=== PATIENT | female | born 1945 | race Caucasian/White ===

== ENCOUNTER 2024-10-07 10:45 | Emergency (ER) | payer MEDICARE, SELFPAY ==
[2024-10-07 11:07] VITALS: BP 109/66
--- NOTE | 2024-10-07 14:21 | ED.MUSCINJ ---
HPI-Injury
General
Chief Complaint: Musculo-Skeletal Complaint
Source: patient
Exam Limitations: dementia
Time Seen by Provider: 10/07/24 14:13
History of Present Illness-Injury
Initial Injury comments:
79-year-old female with history of dementia brought in by EMS after an unwitnessed fall from [facility]. She is a limited historian but does note right shoulder and pelvic pain. She also notes lower back pain she is uncertain if she
hit her head. Papers from the halfway do not endorse any blood thinners. Patient is uncertain when she fell. No other complaints
Phy Exam
Physical Exam
Physical Exam:
General: Well-appearing female no acute respiratory distress
HEENT: Normocephalic atraumatic
Heart: Regular rate and rhythm
Lungs: Clear no wheeze
Abdomen is soft nontender nondistended no guarding or rebound
Musculoskeletal exam: Patient is tender about the right shoulder no deformities. She is also tender over the right lumbosacral junction and posterior pelvis. No deformities to the legs.
Neurologic exam: Alert and oriented to person only
Injury Course
Orders/Labs/Results
Orders:
Orders
10/07/24 14:20
CR Lumbar Spine 2 Or 3 Views Urgent
Comment:
Reason For Exam: fall
CR Pelvis - 1 Or 2 Views Urgent
Comment:
Reason For Exam: fall
CR Shoulder, Trauma - Right Urgent
Comment:
Reason For Exam: fall, pain
10/07/24 14:21
CT Head W/o Iv Contrast Urgent
Comment:
Reason For Exam: fall
MDM/Problems Addressed
Differential Diagnosis Includes:
Unwitnessed fall at nursing facility no blood thinners. CT of the head x-ray right shoulder lumbar spine and pelvis pending
*Critical Care Note
Total Time (30-74mins, 75-104mins- exclusive of procedures): Not Applicable
Update Note
Update Note:
CT head negative for acute finding. X-ray right shoulder lumbar spine and pelvis all negative for acute fractures. Patient reassured. Stable for discharge back to facility
ED Attending Note
-
Portions of this chart may have been created with voice recognition software.� Occasional wrong word or��sound alike� substitutions may have occurred due to the inherent limitations of voice recognition software.
Discharge Plan
Departure
Patient Disposition: Home (Routine Discharge)
Date of Disposition: 10/07/24
Time of Disposition: 16:28
Patient with high blood pressure during this ER visit?: No
Discharge Problem:
Fall
Instructions: Contusion (DC)
Referrals:
Flavia Foster, DO [Family Provider] -
Activity Restrictions/Additional Instructions:
You may take Tylenol if needed for pain. Ice to the sore spot. Return if worse otherwise.
Interventions
Interventions:
*Risk Screen - Suicide Last Done: 10/07/24 11:10
*General Assessment Last Done: 10/07/24 11:10
*Neglect/Abuse Screening Last Done: 10/07/24 11:10
*ED COVID-19 Vaccine History Last Done: 10/07/24 11:10
ED-Musculoskeletal Assessment Last Done: 10/07/24 14:44
Discharge Date and Time
Print Language: SIER[place] LEONEAN
[2024-10-07 15:30] VITALS: BP 136/63
== END 2024-10-07 18:00 | disposition home or self-care (01) ==
LOC: EMR 10:45
PROVIDERS: EMERGENCY PHYSICIAN Student in an Organized Health Care Education/Training Program; FAMILY PHYSICIAN Family Medicine
DX: R10.2 Pelvic and perineal pain (principal); M25.511 Pain in right shoulder; M54.50 Low back pain, unspecified; W19.XXXA Unspecified fall, initial encounter; F03.90 Unspecified dementia, unspecified severity, without behavioral disturbance, psychotic disturbance, mood disturbance, and anxiety
CPT/HCPCS: 99284; 70450; 72100; 72170; 73030

== ENCOUNTER 2024-10-22 04:31 | Emergency (ER) | payer MEDICARE, SELFPAY ==
[2024-10-22 04:36] VITALS: BP 141/63
[2024-10-22 04:53] VITALS: BMI 23.4
--- NOTE | 2024-10-22 04:56 | ED.GENMED ---
Addendum entered and electronically signed by Rey Segal MD 10/23/24 15:25:
Son aware of coccyx fracture. I will inform the facility.
Original Note:
History of Present Illness
General
Chief Complaint: Fall
Source: patient, ambulance crew and group home
Exam Limitations: none
Time Seen by Provider: 10/22/24 04:40
Nursing documentation reviewed up to this point in time: agreed with
History of Present Illness
History of Present Illness:
Pleasantly demented 79-year-old female presents to the emergency department after unwitnessed fall. Patient resides in a dementia unit. She has dementia. She is at baseline. Patient is complaining of diffuse neck pain and coccygeal pain. Medics
state that she has had coccygeal pain in the past. Patient arrived in a c-collar. History is limited due to patient's chronic condition.
Review of Systems
Review of Systems
Allergies reviewed?: Yes
Other source history: group home
All Other Systems: Not applicable
Musculoskeletal: Reports joint pain
Psychiatric: Reports anxiety
Phy Exam
General Physical Exam
General Presentation: well appearing and mild distress
General age: appears stated age
General Skin: warm
General Habitus: elderly
General Mental: anxious
General Hydration: appears well hydrated
ENT Exam
ENT Exam: EOMI, pharynx normal, neck supple and normocephalic
Eye Exam
Eye Exam: PERRL, cornea clear and conjunctiva normal
Cardiovascular Exam
Cardiovascular Exam: regular rate/rhythm, no edema, no murmur and normal peripheral pulses
Pulmonary Exam
Pulmonary Exam: lungs clear, no respiratory distress, no rales, no crackles, no rhonchi, no stridor, no wheezing and no cough
Gastrointestinal Exam
Gastrointestinal Exam: normal bowel sounds, non tender, soft, no organomegaly, no pulsatile mass and non distended
Neurological Exam
Neurological Exam: other (baseline)
Musculoskeletal Exam
Musculoskeletal Exam: full ROM and no edema
Skin Exam
Skin Exam: normal color, warm/dry, no rash and no petechia
Psychiatric Exam
Psychiatric Exam: labile
Course
Orders/Labs/Results
Orders:
Orders
10/22/24 04:49
CT Cervical Spine W/o Iv Contr Urgent
Comment:
Reason For Exam: fall with neck pain, dementia
CT Head W/o Iv Contrast Urgent
Comment:
Reason For Exam: fall
CT Pelvis W/o Iv Contrast Urgent
Comment:
Reason For Exam: pelvic pain after fall
10/22/24 04:58
Morphine Sulfate 4 mg IV NOW STA
Vital Signs
Initial and Last Documented VS:
Initial Vital Signs
Temp Pulse Resp BP Pulse Ox
98.1 F 76 17 141/63 96
10/22/24 04:36 10/22/24 04:36 10/22/24 04:36 10/22/24 04:36 10/22/24 04:36
Last Documented Vital Signs
Temp Pulse Resp BP Pulse Ox
98.1 F 82 12 149/70 96
10/22/24 04:36 10/22/24 05:00 10/22/24 05:00 10/22/24 05:00 10/22/24 04:45
*Critical Care Note
Total Time (30-74mins, 75-104mins- exclusive of procedures): Not Applicable
Update Note
Update Note:
CT pelvis without IV contrast
IMPRESSION:
Bilateral total hip arthroplasties. No definite acute fracture or dislocation. Alignment intact. Bone demineralization. Constipation.
CT pelvis without IV contrast
IMPRESSION:
Bilateral total hip arthroplasties. No definite acute fracture or dislocation. Alignment intact. Bone demineralization. Constipation.
ED Attending Note
-
Portions of this chart may have been created with voice recognition software.� Occasional wrong word or��sound alike� substitutions may have occurred due to the inherent limitations of voice recognition software.
Discharge Plan
Departure
Prescriptions:
No Action
divalproex [Depakote] 250 mg Tablet,Delayed Release (Dr/Ec)
250 mg PO BID
clonazepam [Klonopin] 0.5 mg Tablet
0.5 mg PO TID
quetiapine [Seroquel] 100 mg Tablet
100 mg PO HS
loratadine [Claritin] 10 mg Tablet
10 mg PO DAILY
ezetimibe [Zetia] 10 mg Tablet
10 mg PO HS
quetiapine [Seroquel] 50 mg Tablet
50 mg PO BID
cholecalciferol (vitamin D3) 25 mcg (1,000 unit) Tablet
25 mcg PO DAILY
Lorazepam Gel
0.5 mg topical Q3H PRN (Reason: anxiety)
Patient Comments:
apply to neck or wrist as needed for anxiety
Referrals:
UNKNOWN - PT DOES,NOT KNOW [Family Provider] -
Interventions
Interventions:
*General Assessment Last Done: 10/22/24 04:36
*Neglect/Abuse Screening Last Done: 10/22/24 04:36
*ED- Fall Risk Assessment Last Done: 10/22/24 04:36
*ED COVID-19 Vaccine History Last Done: 10/22/24 04:36
ED-Musculoskeletal Assessment Last Done: 10/22/24 04:40
ED- Neurological Assessment Last Done: 10/22/24 04:40
ED-Skin Assessment Last Done: 10/22/24 04:40
Discharge Date and Time
Print Language: BENINESE
[2024-10-22 05:00] VITALS: BP 149/70
[2024-10-22] MEDS: MORPHINE SULFATE 4 MG IV (05:09)
== END 2024-10-22 07:13 ==
LOC: EMR 04:31
PROVIDERS: EMERGENCY PHYSICIAN Student in an Organized Health Care Education/Training Program
DX: S09.90XA Unspecified injury of head, initial encounter (principal); W19.XXXA Unspecified fall, initial encounter; F03.90 Unspecified dementia, unspecified severity, without behavioral disturbance, psychotic disturbance, mood disturbance, and anxiety; M54.2 Cervicalgia; M53.3 Sacrococcygeal disorders, not elsewhere classified; Z96.643 Presence of artificial hip joint, bilateral
CPT/HCPCS: 99284; 70450; 72125; 72192

== ENCOUNTER 2024-11-20 21:15 | Emergency (ER) | payer MEDICARE, SELFPAY ==
[2024-11-20 21:22] VITALS: BP 98/50
[2024-11-20 21:30] VITALS: BP 98/50
[2024-11-20 21:31] VITALS: BP 134/57
[2024-11-20 21:39] VITALS: BMI 24.6
[2024-11-20 22:00] VITALS: BP 135/57
--- NOTE | 2024-11-20 22:24 | ED.GENMED ---
History of Present Illness
General
Chief Complaint: Fall
Source: patient
Exam Limitations: none
Time Seen by Provider: 11/20/24 22:19
History of Present Illness
History of Present Illness:
See MDM
Past History
Past History
ED Past Medical History: Psychiatric
ED Past Surgical History: None
Social History
Tobacco: Non-smoker
Alcohol: None
Phy Exam
Physical Exam
Physical Exam:
See MDM
Course
Orders/Labs/Results
Orders:
Orders
11/20/24 22:23
CT Head W/o Iv Contrast Urgent
Comment:
Reason For Exam: unwitnessed fall
Acetaminophen [Tylenol] 650 mg PO NOW STA
Hip, Left 2-3 Views [CR Hip - LT w/wo Pel 2-3 Vw*] Urgent
Comment:
Reason For Exam: fall, left hip pain
Include a pelvis x-ray?: Yes
Toes 2 Views, Left CR [CR Toe(s) Min 2 Vw Left] Urgent
Comment:
Reason For Exam: fall, left third toe pain
Vital Signs
Initial and Last Documented VS:
Initial Vital Signs
Temp Pulse Resp BP Pulse Ox
98.1 F 83 20 98/50 97
11/20/24 21:22 11/20/24 21:22 11/20/24 21:22 11/20/24 21:22 11/20/24 21:22
Last Documented Vital Signs
Temp Pulse Resp BP Pulse Ox
98.1 F 89 22 135/57 96
11/20/24 21:22 11/20/24 22:30 11/20/24 22:30 11/20/24 22:00 11/20/24 22:30
MDM/Problems Addressed
Differential Diagnosis Includes:
HPI and MDM Narrative:
79-year-old female presenting for evaluation of an unwitnessed fall. Although she does have diagnosed dementia, patient states that her shoelaces were untied and it caused her to trip falling backwards. She is unsure about head trauma but
complains mostly of left hip pain and left foot pain. On exam, she does have tenderness to left hip. She does have bruising to left third toe. Given the possible head injury, will obtain CT head
Physical exam
General: Weak and frail
HEENT: protecting airway
Neck: appears supple
CV: No evidence of cyanosis
Resp: No accessory muscle use
Abd: Non-distended. Soft and
Extremities: Tenderness to left hip and left third toe
Neuro: alert
Psych: Normal affect
Skin: Intact
Problems Addressed including Acute and Chronic Conditions affecting care:
1. Possible head injury
Acuity: acute
Prognosis: stable
Details: Given age and complaint, will obtain CT head
2. Left hip
Acuity: acute
Prognosis: stable
Details: Will obtain x-ray
3. Left third toe pain
Acuity: acute
Prognosis: stable
Details: Will obtain x-ray
Updates
CT head negative. Hip x-ray negative for fracture. Questionable toe fracture. Patient remains comfortable and will discharge
Differential Diagnosis (but not limited to): Contusion, hip fracture
Testing considered: Blood work
Drug therapy (if applicable): OTC meds, please see d/c instruction regarding Rx drugs
Amount and/or Complexity of Data Reviewed
Clinical info obtained from: Patient
External data reviewed: N/A
Labs I independently reviewed (but not limited to): N/A
Radiology: The CT scan was personally and independently reviewed. In addition, official CT report reviewed.
X-ray independently reviewed: Questionable toe fracture
Pulse Ox: not hypoxic
EKG independently reviewed: N/A
Spent Grain Dryer: N/A
Critical Care: N/A
Risk of Complication:
Social Determinants of health: Good social support
Discussed with other providers: N/A
Escalation of Care includes Admit/Obs: After being observed in the Emergency Department, pt stable for discharge.
Occasional wrong word or 'sound a like' substitutions may have occurred due to the inherent limitations of voice recognition software. Read the chart carefully and recognize, using context, where substitutions have occurred.
*Critical Care Note
Total Time (30-74mins, 75-104mins- exclusive of procedures): Not Applicable
ED Attending Note
-
Portions of this chart may have been created with voice recognition software.� Occasional wrong word or��sound alike� substitutions may have occurred due to the inherent limitations of voice recognition software.
Discharge Plan
Departure
Patient Disposition: Home (Routine Discharge)
Date of Disposition: 11/20/24
Time of Disposition: 23:40
Patient with high blood pressure during this ER visit?: No
Discharge Problem:
Contusion of toe of left foot
Prescriptions:
No Action
divalproex [Depakote] 250 mg Tablet,Delayed Release (Dr/Ec)
250 mg PO BID
clonazepam [Klonopin] 0.5 mg Tablet
0.5 mg PO TID
quetiapine [Seroquel] 100 mg Tablet
100 mg PO HS
loratadine [Claritin] 10 mg Tablet
10 mg PO DAILY
ezetimibe [Zetia] 10 mg Tablet
10 mg PO HS
quetiapine [Seroquel] 50 mg Tablet
50 mg PO BID
cholecalciferol (vitamin D3) 25 mcg (1,000 unit) Tablet
25 mcg PO DAILY
Lorazepam Gel
0.5 mg topical Q3H PRN (Reason: anxiety)
Patient Comments:
apply to neck or wrist as needed for anxiety
Referrals:
Graham Costa DPM [Active] -
Flavia Foster DO [Family Provider] -
Activity Restrictions/Additional Instructions:
The x-ray is concerning for toe fracture. Please follow-up with a foot doctor. You are allowed to bear weight on your foot.
Please return for any worsening symptoms.
You may return at any time if you have further concerns.
Please follow up with your doctor at the first available appointment, preferably this week.
Thank you for choosing [facility].
Interventions
Interventions:
*Risk Screen - Suicide Last Done: 11/20/24 21:22
*General Assessment Last Done: 11/20/24 21:22
*Neglect/Abuse Screening Last Done: 11/20/24 21:22
*ED- Fall Risk Assessment Last Done: 11/20/24 21:40
*ED COVID-19 Vaccine History Last Done: 11/20/24 21:40
ED-Musculoskeletal Assessment Last Done: 11/20/24 21:34
ED- Neurological Assessment Last Done: 11/20/24 21:34
ED-Skin Assessment Last Done: 11/20/24 21:34
Discharge Date and Time
Print Language: HEBREW
[2024-11-20] MEDS: TYLENOL 650 MG PO (22:38)
[2024-11-20 23:47] VITALS: BP 122/51
[2024-11-21] VITALS: BP 99/59
== END 2024-11-21 01:29 ==
LOC: EMR 21:15
PROVIDERS: EMERGENCY PHYSICIAN Student in an Organized Health Care Education/Training Program; FAMILY PHYSICIAN Family Medicine
DX: S90.122A Contusion of left lesser toe(s) without damage to nail, initial encounter (principal); M25.552 Pain in left hip; W01.0XXA Fall on same level from slipping, tripping and stumbling without subsequent striking against object, initial encounter; F03.90 Unspecified dementia, unspecified severity, without behavioral disturbance, psychotic disturbance, mood disturbance, and anxiety
CPT/HCPCS: 99284; 70450; 73502; 73660

== ENCOUNTER 2024-11-26 17:38 | Emergency (ER) | payer MEDICARE, SELFPAY ==
[2024-11-26] VITALS (7 sets, daily range): BP systolic 123–143; BP diastolic 47–100; BMI 22.6
--- NOTE | 2024-11-26 17:52 | ED.GENMED ---
History of Present Illness
General
Chief Complaint: Change in Mental Status
Source: ambulance crew
Exam Limitations: dementia
Time Seen by Provider: 11/26/24 17:45
Nursing documentation reviewed up to this point in time: agreed with
History of Present Illness
History of Present Illness:
Patient is a 79-year-old female sent by [facility] for evaluation. Patient has a history of mood disorder, Alzheimer's disease hyperlipidemia was found to have increased confusion and decreased p.o. intake since Sunday which worsened
yesterday along with new onset urine incontinence. Pt arrives to the ER awake alert able to state her name attempt to follow commands but confused other conversation. Patient was just seen here November 20 for unwitnessed fall and had CAT scan of
head and hip x-rays which were negative. She was found to have a questionable toe fracture.
Past History
Past History
ED Past Medical History: Psychiatric
ED Past Surgical History: None
Social History
Tobacco: Non-smoker
Alcohol: None
Phy Exam
General Physical Exam
General Presentation: no apparent distress
General age: appears stated age
General Skin: warm and dry
General Habitus: elderly
General Mental: confused
General Hydration: dry mucous membranes
Cardiovascular Exam
Cardiovascular Exam: regular rate/rhythm
Pulmonary Exam
Pulmonary Exam: lungs clear and no respiratory distress
Neurological Exam
Neurological Exam: alert and other ( attempts to Follow commands able to state name)
Musculoskeletal Exam
Musculoskeletal Exam: full ROM
Skin Exam
Skin Exam: normal color and warm/dry
Psychiatric Exam
Psychiatric Exam: normal mood/affect
Course
Orders/Labs/Results
Orders:
Orders
11/26/24 17:53
CT Head W/o Iv Contrast Urgent
Comment:
Reason For Exam: change in ms
11/26/24 17:54
Straight cath- Treatment ONCE
Chest [CR Chest - 2 Views ] Urgent
Comment:
Reason For Exam: confusion
11/26/24 18:07
Complete Blood Count/With Diff Urgent
Comprehensive Metabolic Panel Urgent
11/26/24 19:31
Urinalysis Reflex To Culture Urgent
Date Specimen was Collected: 11/26/24
Time Specimen was Collected: 19:30
Urine Microscopic Reflex Cult Urgent
Urine Culture Urgent
ERNESTINE Source: U
Specimen Description:
Date Specimen was Collected: 11/26/24
Time Specimen was Collected: 19:30
11/26/24 20:31
0.9% Sodium Chloride 500 ml [Nss] 500 ml IV BOLUS
11/26/24 20:32
Add On- LAB Urgent
Tests Added?: depakote level
11/26/24 20:54
Depakane Routine
Comment: CANNOT ADD ON, MUST DRAW ON A PLAIN RED TOP TUBE.
Abnormal Lab Results
11/26/24 11/26/24
18:07 19:31
RDW 15.1 H %
(11.5-14.5)
Absolute Monos (auto) 1.0 H 10^3/uL
(0.1-0.6)
Lymphocytes % 16.6 L %
(20.5-51.1)
Monocytes % 13.6 H %
(1.7-9.3)
BUN 23 H mg/dl
(7-17)
Glucose 104 H mg/dl
(70-99)
Urine Ketones 3+ A
(Negative)
Ur Occult Blood Reflex 2+ A
(Negative)
Leukocyte Esterase Rfl 1+ A
(Negative)
Urine RBC 3-6 A /HPF
(0-2)
Urine Bacteria (Reflex) Moderate A
(Negative)
Urine Albumin (Reflex) 2+ A
(Neg - Trace)
11/26/24 18:07
11/26/24 18:07
Vital Signs
Initial and Last Documented VS:
Initial Vital Signs
Pulse Resp Pulse Ox
90 21 96
11/26/24 17:48 11/26/24 17:48 11/26/24 17:48
Last Documented Vital Signs
Temp Pulse Resp BP Pulse Ox
97.8 F 87 19 123/100 98
11/26/24 17:52 11/26/24 22:15 11/26/24 22:15 11/26/24 21:00 11/26/24 20:45
Hemstitching Machine Operator consulted with Physician
Hemstitching Machine Operator consulted with physician?: Yes
Name of Physician Consulted: nydia
MDM/Problems Addressed
MDM/Problems Addressed:
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 She was sent for
increasing confusion decreased oral intake and incontinence. I spoke to son over the phone who reports he has been told the patient has been moving her bowels and urinating in the hallways and closets. Likely related to dementia. She does
report that she has a history of being very aggressive and is on these medications for this reason. She presents awake alert confused but able to state her name and attempts to follow commands. She is afebrile with normal white count normal sodium
potassium creatinine BUN minimally elevated will give fluids no obvious UTI however culture will be sent there is +1 leuks. No acute changes on CAT scan of her head chest x-ray negative. Will plan to check a valproic acid level and give normal
saline fluid bolus however if all negative stable for discharge back to [place].
Case reviewed with ED physician
Chronic conditions affecting care:
Alzheimer's behavior issues affective disorder
*Radiology
Radiology exam reviewed: radiology read reviewed
*Critical Care Note
Total Time (30-74mins, 75-104mins- exclusive of procedures): Not Applicable
ED Attending Note
-
Portions of this chart may have been created with voice recognition software.� Occasional wrong word or��sound alike� substitutions may have occurred due to the inherent limitations of voice recognition software.
Discharge Plan
Departure
Patient Disposition: Retirement/SNF
Date of Disposition: 11/26/24
Time of Disposition: 23:08
Patient with high blood pressure during this ER visit?: Yes
Condition: Fair
Covid-19: Not Applicable
Discharge Problem:
Dementia
Instructions: Dementia (DC), BLOOD PRESSURE
Prescriptions:
No Action
divalproex [Depakote] 250 mg Tablet,Delayed Release (Dr/Ec)
250 mg PO BID
clonazepam [Klonopin] 0.5 mg Tablet
0.5 mg PO TID
quetiapine [Seroquel] 100 mg Tablet
100 mg PO HS
loratadine [Claritin] 10 mg Tablet
10 mg PO DAILY
ezetimibe [Zetia] 10 mg Tablet
10 mg PO HS
quetiapine [Seroquel] 50 mg Tablet
50 mg PO BID
cholecalciferol (vitamin D3) 25 mcg (1,000 unit) Tablet
25 mcg PO DAILY
Lorazepam Gel
0.5 mg topical Q3H PRN (Reason: anxiety)
Patient Comments:
apply to neck or wrist as needed for anxiety
Referrals:
Flavia Foster DO [Family Provider] -
Activity Restrictions/Additional Instructions:
Patient must be evaluated by primary care physician the next several days no acute findings on workup here in the ER.
CAT scan unchanged no acute findings on chest x-ray
Interventions
Interventions:
*Risk Screen - Suicide Last Done: 11/26/24 17:52
*General Assessment Last Done: 11/26/24 17:52
*Neglect/Abuse Screening Last Done: 11/26/24 17:52
*ED- Fall Risk Assessment Last Done: 11/26/24 17:52
ED- Pulmonary Assessment Last Done: 11/26/24 17:52
ED- Neurological Assessment Last Done: 11/26/24 17:52
ED- Cardiac Assessment Last Done: 11/26/24 17:52
Discharge Date and Time
Print Language: VIETNAMESE
[2024-11-26 18:15] LABS: % Basophils 0.6 % (0-2); % Eosinophils 0.1 % (0-6); % Immature Granulocytes 0.3 % (0-0.5); % Lymphocytes 16.6 % (20.5-51.1); % Monocytes 13.6 % (1.7-9.3); % Neutrophils 68.8 % (42.2-75.2); Absolute Lymphocytes 1.2 10^3/uL (1.2-3.4); Absolute Neutrophils 4.9 10^3/uL (1.4-6.5); Hematocrit 38.6 % (37.0-47.0); Hemoglobin 12.9 g/dL (12.0-16.0); Mean Corp Hgb Conc. 33.4 g/dL (33.0-37.0); Mean Corpuscular Hgb 29.9 pg (27.0-31.0); Mean Corpuscular Volume 89.4 fL (81.0-99.0); Mean Platelet Volume 9.4 fL (7.4-10.4); Nucleated Red Blood Cells % 0 %; Platelet Count 296 10^3/uL (130-400); Red Blood Cell Count 4.32 10^6/uL (4.20-5.40); Red Cell Dist. Width 15.1 % (11.5-14.5); White Blood Cell Count 7.2 10^3/uL (4.8-10.8)
[2024-11-26 18:28] LABS: ALT (SGPT) 25 U/L (0-35); AST (SGOT) 27 U/L (14-36); Albumin 4.6 g/dl (3.5-5.0); Alkaline Phosphatase 70 U/L (38-126); Blood Urea Nitrogen 23 mg/dl (7-17); Calcium 9.6 mg/dl (8.4-10.2); Carbon Dioxide 28 mmol/L (22-30); Chloride 101 mmol/L (98-107); Estimated Creatinine Clearance 58 ml/min; Glucose 104 mg/dl (70-99); Potassium 4.6 mmol/L (3.5-5.1); Sodium 140 mmol/L (135-145); Total Bilirubin 0.8 mg/dl (0.2-1.3); Total Protein 7.9 g/dl (6.3-8.2); eGFR > 60.00
[2024-11-26 19:39] LABS: Urine Albumin 2+ (Neg - Trace); Urine Bilirubin Negative (Negative); Urine Character Clear (Clear); Urine Color Yellow; Urine Glucose Negative (Negative); Urine Ketone 3+ (Negative); Urine Leukocyte 1+ (Negative); Urine Nitrite Negative (Negative); Urine Occult Blood 2+ (Negative); Urine Specific Gravity 1.025 (<1.030); Urine Urobilinogen Negative (Neg - 1+)
[2024-11-26 20:13] LABS: Urine Bacteria Moderate (Negative); Urine Mucus Moderate; Urine Squamous Cell 0-2 /LPF (Few); Urine White Cell 0-2 /HPF (0-5)
[2024-11-26] MEDS: NSS 500 IV (20:55)
[2024-11-26 22:38] LABS: Depakane 55.4 ug/ml (50.0-120.0)
== END 2024-11-27 00:41 ==
LOC: EMR 17:38
PROVIDERS: Nurse Practitioner; EMERGENCY PHYSICIAN Emergency Medicine; FAMILY PHYSICIAN Family Medicine
DX: G30.9 Alzheimer's disease, unspecified (principal); F02.83 Dementia in other diseases classified elsewhere, unspecified severity, with mood disturbance; F39 Unspecified mood [affective] disorder; E78.5 Hyperlipidemia, unspecified; Z79.899 Other long term (current) drug therapy
CPT/HCPCS: 96360; 99284; 70450; 71046; 80053; 80164; 81003; 81015; 85025; 87086

== ENCOUNTER 2024-12-14 21:02 | Emergency (ER) | payer MEDICARE, SELFPAY ==
[2024-12-14 21:05] VITALS: BMI 21.7
[2024-12-14 21:07] VITALS: BP 132/50
--- NOTE | 2024-12-14 21:35 | ED.GENMED ---
History of Present Illness
<Miller Ng MD, Resident - Last Filed: 12/17/24 08:15>
General
Chief Complaint: Fall
Time Seen by Provider: 12/14/24 21:13
History of Present Illness
History of Present Illness:
79-year-old female with history of dementia presents to the EMS via ED from [facility] after an unwitnessed fall. Patient states she had four falls today. She admits to hitting her head on the floor. She admits to right hip pain. She
denies episode of dizziness, syncope or loss of consciousness. At the nursing facility, she was found on the ground laying on her right side. Pertinent to patient's history, she has had multiple fall episodes in the past 3 months.
Past History
<Miller Ng MD, Resident - Last Filed: 12/17/24 08:15>
Past History
ED Past Medical History: Psychiatric
ED Past Surgical History: None
Social History
Tobacco: Non-smoker
Alcohol: None
Review of Systems
<Miller Ng MD, Resident - Last Filed: 12/17/24 08:15>
Review of Systems
All Other Systems: ROS reviewed and negative except as documented in HPI and ROS
Phy Exam
<Miller Ng MD, Resident - Last Filed: 12/17/24 08:15>
General Physical Exam
General Presentation: no apparent distress
General age: appears stated age
General Skin: warm and dry
General Habitus: elderly
ENT Exam
ENT Exam: EOMI and pharynx normal
Eye Exam
Eye Exam: EOMI
Pulmonary Exam
Pulmonary Exam: lungs clear and no respiratory distress
Gastrointestinal Exam
Gastrointestinal Exam: normal bowel sounds, soft and non distended
Musculoskeletal Exam
Musculoskeletal Exam: other (Tenderness to palpation of the right hip)
Skin Exam
Skin Exam: other (Skin intact, no bleeding)
Course
<Miller Ng MD, Resident - Last Filed: 12/17/24 08:15>
Orders/Labs/Results
Orders:
Orders
12/14/24 21:25
CT Cervical Spine W/o Iv Contr Urgent
Comment:
Reason For Exam: unwitnessed fall.
CT Head W/o Iv Contrast Urgent
Comment:
Reason For Exam: fall
12/14/24 21:26
CR Hip - RT w/wo Pel 2-3 Vw* Urgent
Comment:
Reason For Exam: RIGHT HIP PAIN S/P FALL
Include a pelvis x-ray?: Yes
12/14/24 21:44
Complete Blood Count/With Diff Urgent
Comprehensive Metabolic Panel Urgent
Magnesium Urgent
Urinalysis Reflex To Culture Urgent
Date Specimen was Collected: 12/14/24
Time Specimen was Collected: 21:42
Abnormal Lab Results
12/14/24
21:44
MCHC 32.7 L g/dL
(33.0-37.0)
Carbon Dioxide 32 H mmol/L
(22-30)
BUN 19 H mg/dl
(7-17)
Glucose 105 H mg/dl
(70-99)
12/14/24 21:44
12/14/24 21:44
Vital Signs
Initial and Last Documented VS:
Initial Vital Signs
Temp Pulse Resp BP Pulse Ox
97.9 F 90 12 132/50 99
12/14/24 21:07 12/14/24 21:07 12/14/24 21:07 12/14/24 21:07 12/14/24 21:07
Last Documented Vital Signs
Temp Pulse Resp BP Pulse Ox
97.9 F 83 21 138/70 98
12/14/24 21:07 12/15/24 00:48 12/15/24 00:38 12/15/24 00:48 12/14/24 23:43
<Rey Segal MD - Last Filed: 12/14/24 22:25>
Orders/Labs/Results
Orders:
Orders
12/14/24 21:25
CT Cervical Spine W/o Iv Contr Urgent
Comment:
Reason For Exam: unwitnessed fall.
CT Head W/o Iv Contrast Urgent
Comment:
Reason For Exam: fall
12/14/24 21:26
CR Hip - RT w/wo Pel 2-3 Vw* Urgent
Comment:
Reason For Exam: RIGHT HIP PAIN S/P FALL
Include a pelvis x-ray?: Yes
12/14/24 21:44
Complete Blood Count/With Diff Urgent
Comprehensive Metabolic Panel Urgent
Magnesium Urgent
Urinalysis Reflex To Culture Urgent
Date Specimen was Collected: 12/14/24
Time Specimen was Collected: 21:42
Abnormal Lab Results
12/14/24
21:44
MCHC 32.7 L g/dL
(33.0-37.0)
Carbon Dioxide 32 H mmol/L
(22-30)
BUN 19 H mg/dl
(7-17)
Glucose 105 H mg/dl
(70-99)
12/14/24 21:44
12/14/24 21:44
Vital Signs
Initial and Last Documented VS:
Initial Vital Signs
Temp Pulse Resp BP Pulse Ox
97.9 F 90 12 132/50 99
12/14/24 21:07 12/14/24 21:07 12/14/24 21:07 12/14/24 21:07 12/14/24 21:07
Last Documented Vital Signs
Temp Pulse Resp BP Pulse Ox
97.9 F 83 21 138/70 98
12/14/24 21:07 12/15/24 00:48 12/15/24 00:38 12/15/24 00:48 12/14/24 23:43
<Miller Ng MD, Resident - Last Filed: 12/17/24 08:15>
MDM/Problems Addressed
MDM/Problems Addressed:
79-year-old female with past medical history of dementia presents to the ED after an episode of unwitnessed fall. Patient with history of multiple falls over the past 3 months. Physical examination with tenderness on palpation of the right hip.
At this time we will evaluate with a CT scan of the head, CT cervical and neck. Will also evaluate with an x-ray of the right hip. Given history of multiple falls, we will further workup with a CBC, CMP, mag, urinalysis.
Update; Hip x-ray negative for fracture. CT head no acute intracranial finding. CT spine with no acute fracture. Laboratory studies unremarkable. Urinalysis negative for UTI.
After labs and imaging studies were ordered and received, nurse was informed the patient is currently on hospice. Will discharge patient back to nursing facility
<Miller Ng MD, Resident - Last Filed: 12/17/24 08:15>
*Critical Care Note
Total Time (30-74mins, 75-104mins- exclusive of procedures): Not Applicable
ED Attending Note
<Miller Ng MD, Resident - Last Filed: 12/17/24 08:15>
-
Portions of this chart may have been created with voice recognition software.� Occasional wrong word or��sound alike� substitutions may have occurred due to the inherent limitations of voice recognition software.
<Rey Segal MD - Last Filed: 12/14/24 22:25>
ED Attending Note
Patient seen and examined by attending physician: Yes
I performed a history and physical exam of patient and discussed management with resident, I reviewed resident's note and agree with documented findings and plan of care.: Yes
ED Attending Note:
Patient found on the floor in front of her wheelchair. Unwitnessed fall. History of frequent falls. Patient is unable to add history.
TRAUMA EXAM:
VITAL SIGNS: Vital signs reviewed, cooperative
DISTRESS: No active disease
EYES: Pupils reactive, no orbital trauma
NOSE: No deformity or epistaxis. Superficial abrasion of the nose
FACE AND SCALP: No scalp trauma, external canals no blood. Area of ecchymosis to the forehead. Slightly old appearing
NECK: Supple nontender
BACK: Back nontender, pelvis stable to compression
RESPIRATORY: No distress, breath sounds normal, no tender chest wall
CARDIAC: No murmur, pulses equal and strong
ABDOMEN: Soft nontender bowel sounds normal
SKIN: Skin intact no bleeding, color normal
EXTREMITIES: Nontender. Good range of motion both hips. Pelvis is stable. No bony tenderness to the upper or lower extremities. Old scars to the hips
NEUROLOGICAL: Alert, oriented to name., no motor deficits
PSYCH: Flat affect
Impression likely fall although unwitnessed. Medically stable. Low suspicion for acute clinical injury. However based on unknown mechanism will CT the head and cervical spine. Check labs EKG. If all stable discharged to follow-up
Discharge Plan
Departure
Patient Disposition: Intermediate/SNF
Date of Disposition: 12/15/24
Time of Disposition: 00:04
Patient with high blood pressure during this ER visit?: No
Discharge Problem:
Fall
Prescriptions:
No Action
divalproex [Depakote] 250 mg Tablet,Delayed Release (Dr/Ec)
250 mg PO BID
clonazepam [Klonopin] 0.5 mg Tablet
0.5 mg PO TID
quetiapine [Seroquel] 100 mg Tablet
50 mg PO HS
loratadine [Claritin] 10 mg Tablet
10 mg PO DAILY
ezetimibe [Zetia] 10 mg Tablet
10 mg PO HS
quetiapine [Seroquel] 50 mg Tablet
25 mg PO BID
cholecalciferol (vitamin D3) 25 mcg (1,000 unit) Tablet
25 mcg PO DAILY
Lorazepam Gel
0.5 mg topical Q3H PRN (Reason: anxiety)
Patient Comments:
apply to neck or wrist as needed for anxiety
Referrals:
Flavia Foster DO [Family Provider] -
Interventions
Interventions:
*Risk Screen - Suicide Last Done: 12/14/24 21:06
*General Assessment Last Done: 12/14/24 21:13
*Neglect/Abuse Screening Last Done: 12/14/24 21:06
*ED- Fall Risk Assessment Last Done: 12/14/24 21:06
*ED COVID-19 Vaccine History Last Done: 12/14/24 21:06
*Nursing Disposition Last Done: 12/15/24 05:26
ED-Musculoskeletal Assessment Last Done: 12/14/24 21:14
ED- Neurological Assessment Last Done: 12/14/24 21:14
ED-Skin Assessment Last Done: 12/14/24 21:14
Discharge Date and Time
Discharge Date/Time: 12/15/24 05:28
Print Language: SWISS
[2024-12-14 21:53] LABS: % Basophils 0.6 % (0-2); % Eosinophils 0.8 % (0-6); % Immature Granulocytes 0.2 % (0-0.5); % Lymphocytes 31.2 % (20.5-51.1); % Neutrophils 58.2 % (42.2-75.2); Absolute Eosinophils 0.1 10^3/uL (0-0.7); Absolute Monocytes 0.6 10^3/uL (0.1-0.6); Absolute Neutrophils 3.8 10^3/uL (1.4-6.5); Hematocrit 40.4 % (37.0-47.0); Hemoglobin 13.2 g/dL (12.0-16.0); Mean Corp Hgb Conc. 32.7 g/dL (33.0-37.0); Mean Corpuscular Hgb 29.8 pg (27.0-31.0); Mean Corpuscular Volume 91.2 fL (81.0-99.0); Mean Platelet Volume 10.1 fL (7.4-10.4); Nucleated Red Blood Cells % 0 %; Platelet Count 390 10^3/uL (130-400); Red Blood Cell Count 4.43 10^6/uL (4.20-5.40); Red Cell Dist. Width 14.4 % (11.5-14.5); White Blood Cell Count 6.5 10^3/uL (4.8-10.8)
[2024-12-14 22:06] LABS: Urine Albumin Negative (Neg - Trace); Urine Bilirubin Negative (Negative); Urine Character Clear (Clear); Urine Color Yellow; Urine Glucose Negative (Negative); Urine Ketone Negative (Negative); Urine Leukocyte Negative (Negative); Urine Nitrite Negative (Negative); Urine Occult Blood Negative (Negative); Urine Urobilinogen Negative (Neg - 1+); Urine pH 6.5 (5.0-9.0)
[2024-12-14 22:16] LABS: ALT (SGPT) 15 U/L (0-35); AST (SGOT) 18 U/L (14-36); Albumin 4.1 g/dl (3.5-5.0); Alkaline Phosphatase 53 U/L (38-126); Blood Urea Nitrogen 19 mg/dl (7-17); Calcium 9.9 mg/dl (8.4-10.2); Carbon Dioxide 32 mmol/L (22-30); Chloride 100 mmol/L (98-107); Estimated Creatinine Clearance 58 ml/min; Glucose 105 mg/dl (70-99); Magnesium 2.3 mg/dl (1.6-2.3); Potassium 4.6 mmol/L (3.5-5.1); Sodium 139 mmol/L (135-145); Total Bilirubin 0.5 mg/dl (0.2-1.3); Total Protein 7.5 g/dl (6.3-8.2); eGFR > 60.00
--- NOTE | 2024-12-14 22:24 | PTCARENOTE ---
Addendum entered by Radha Mcdowell RN 12/14/24 22:26:
[facility] - Stefan
Original Note:
Received call from Stefan from [facility] to make us aware that pt is on Hospice. If admitted they need to be notified. made aware. Will continue to monitor.
[2024-12-14 22:26] VITALS: BP 123/58
[2024-12-14 23:00] VITALS: BP 124/57
[2024-12-15 00:38] VITALS: BP 138/70
[2024-12-15 00:48] VITALS: BP 138/70
== END 2024-12-15 05:28 ==
LOC: EMR 21:02
PROVIDERS: Student in an Organized Health Care Education/Training Program; EMERGENCY PHYSICIAN Emergency Medicine; FAMILY PHYSICIAN Family Medicine
DX: S00.83XA Contusion of other part of head, initial encounter (principal); S00.31XA Abrasion of nose, initial encounter; M25.551 Pain in right hip; W19.XXXA Unspecified fall, initial encounter; Y92.129 Unspecified place in nursing home as the place of occurrence of the external cause; R32 Unspecified urinary incontinence; F03.90 Unspecified dementia, unspecified severity, without behavioral disturbance, psychotic disturbance, mood disturbance, and anxiety; R29.6 Repeated falls; Z88.0 Allergy status to penicillin; Z88.8 Allergy status to other drugs, medicaments and biological substances; Z91.030 Bee allergy status
CPT/HCPCS: 99285; 51701; 70450; 72125; 73502; 80053; 81003; 83735; 85025

== ENCOUNTER 2025-03-13 08:09 | Emergency (ER) | payer MEDICARE, SELFPAY ==
[2025-03-13 08:16] VITALS: BP 151/80
[2025-03-13] MEDS: MORPHINE SULFATE 4 MG IV (08:28)
--- NOTE | 2025-03-13 08:55 | ED.MUSCINJ ---
HPI-Injury
General
Chief Complaint: Fall
Source: patient, shelter records and previous radiology exam
Exam Limitations: dementia
Time Seen by Provider: 03/13/25 08:18
Nursing documentation reviewed up to this point in time: agreed with
History of Present Illness-Injury
Is this injury a work related problem?: No
Is pt an associate of [facility]/[place]?: No
Initial Injury comments:
Elderly patient from [facility] dementia unit apparently fell out of bed struck her left hip reportedly she is on hospice, has had falls previously, tells me she maybe hit her head as well, my evaluation she is resting comfortably after some
analgesia favoring her left hip, other history is limited due to her medical issues, does not appear to be on any blood thinners, no overt signs of head or neck trauma,
Past History
Past History
ED Past Medical History: Psychiatric
ED Past Surgical History: None
Social History
Tobacco: Non-smoker
Alcohol: None
Review of Systems
Review of Systems
Unable to obtain full review of systems at this time due to: dementia
All Other Systems: Not applicable
Musculoskeletal: Reports joint pain
Phy Exam
Physical Exam
Physical Exam:
Physical Exam
General: no apparent distress, not acutely ill
Neck: supple. no meningeal signs. normal psoterior pharynx
Heart: s1/s2 regular rate and rhythm, no murmur. equal radial pulses.
Lungs: no acute respiratory distress. clear bilaterally
Abdomen: normal bowel sounds. not tender. no CVAT
Neuro: alert and oriented. no focal neurological deficits
Skin: no rash
Psychiatric: well kept. interactive and cooperative
Extremities: no edema. no calf tenderness. negative homans. good distal pulses
Injury Course
Orders/Labs/Results
Orders:
Orders
03/13/25 08:27
Morphine Sulfate 4 mg IV NOW STA
Hip, Left 2-3 Views [CR Hip - LT w/wo Pel 2-3 Vw*] Urgent
Comment:
Reason For Exam: fall
Include a pelvis x-ray?: Yes
03/13/25 08:48
CT Cervical Spine W/o Iv Contr Urgent
Comment:
Reason For Exam: fall
CT Head W/o Iv Contrast Urgent
Comment:
Reason For Exam: fall
*Radiology
Radiology exam reviewed: radiology read reviewed
*Pulse Oximetry
SaO2: 98
Oxygen Mode of Delivery: Room air
Patient hypoxic: no
*Mortar Man Interpretation
Rate: normal
Interpretation: normal
Heart Rate: 78
Rhythm: sinus
*Critical Care Note
Total Time (30-74mins, 75-104mins- exclusive of procedures): Not Applicable
Update Note
Update Note:
9:45 AM update images noted formal report is pending no obvious fracture or dislocation hemorrhage
X-ray reports noted
ED Attending Note
-
Portions of this chart may have been created with voice recognition software.� Occasional wrong word or��sound alike� substitutions may have occurred due to the inherent limitations of voice recognition software.
Discharge Plan
Departure
Patient Disposition: Intermediate/SNF
Date of Disposition: 03/13/25
Time of Disposition: 09:59
Condition: Good
Discharge Problem:
Contusion of hip
Instructions: Contusion (DC), Preventing falls in adults
Prescriptions:
No Action
divalproex [Depakote] 250 mg Tablet,Delayed Release (Dr/Ec)
250 mg PO BID
clonazepam [Klonopin] 0.5 mg Tablet
0.5 mg PO TID
quetiapine [Seroquel] 100 mg Tablet
50 mg PO HS
loratadine [Claritin] 10 mg Tablet
10 mg PO DAILY
ezetimibe [Zetia] 10 mg Tablet
10 mg PO HS
quetiapine [Seroquel] 50 mg Tablet
25 mg PO BID
cholecalciferol (vitamin D3) 25 mcg (1,000 unit) Tablet
25 mcg PO DAILY
Lorazepam Gel
0.5 mg topical Q3H PRN (Reason: anxiety)
Patient Comments:
apply to neck or wrist as needed for anxiety
Referrals:
Flavia Foster DO [Family Provider, Family Practice] - Next open appointment
Interventions
Interventions:
*Risk Screen - Suicide Last Done: 03/13/25 08:16
*General Assessment Last Done: 03/13/25 08:16
ED-Musculoskeletal Assessment Last Done: 03/13/25 08:23
ED- Neurological Assessment Last Done: 03/13/25 08:23
ED-Skin Assessment Last Done: 03/13/25 08:23
Discharge Date and Time
Print Language: DIVEHI
[2025-03-13 09:00] VITALS: BP 122/71
[2025-03-13 10:41] VITALS: BP 114/68
[2025-03-13] MEDS: MORPHINE SULFATE 2 MG IV (12:50)
[2025-03-13 13:01] VITALS: BP 126/72
== END 2025-03-13 13:02 ==
LOC: EMR 08:09
PROVIDERS: EMERGENCY PHYSICIAN Emergency Medicine; FAMILY PHYSICIAN Family Medicine
DX: S70.02XA Contusion of left hip, initial encounter (principal); W06.XXXA Fall from bed, initial encounter; F03.90 Unspecified dementia, unspecified severity, without behavioral disturbance, psychotic disturbance, mood disturbance, and anxiety; Z51.5 Encounter for palliative care
CPT/HCPCS: 96374; 96376; 99284; 70450; 72125; 73502